=== PATIENT | male | born 1985 | race African-American/Black ===

== ENCOUNTER 2017-02-12 22:43 | Emergency (ER) | payer MEDICAID ==
[~2017-02-12] VITALS: Ht 190.5 cm; Wt 134.0 kg
[2017-02-12] MEDS ORDERED: KETOROLAC 60MG/2ML VIAL IM ONE (23:30)
[2017-02-13 00:03] VITALS: BP 136/80
== END 2017-02-13 00:03 | disposition home or self-care (01) ==
LOC: ER 22:44
DX: M54.5 Low back pain (principal); G89.29 Other chronic pain; F17.200 Nicotine dependence, unspecified, uncomplicated; Z88.0 Allergy status to penicillin; W01.0XXA Fall on same level from slipping, tripping and stumbling without subsequent striking against object, initial encounter; Y93.89 Activity, other specified; Y99.8 Other external cause status; Y92.89 Other specified places as the place of occurrence of the external cause
CPT/HCPCS: 96372; 99283; J1885

== ENCOUNTER 2017-10-24 00:15 | Emergency (ER) | payer MEDICAID, OTHER ==
[~2017-10-24] VITALS: Ht 188 cm; Wt 117.0 kg
[2017-10-24 01:37] VITALS: BP 125/57
== END 2017-10-24 02:50 | disposition left against medical advice (07) ==
LOC: ER 00:15
DX: R05 Cough (principal); F20.9 Schizophrenia, unspecified; F31.9 Bipolar disorder, unspecified; F17.200 Nicotine dependence, unspecified, uncomplicated; Z88.0 Allergy status to penicillin
CPT/HCPCS: 71045; 99283; 99406

== ENCOUNTER 2023-09-25 00:17 | Emergency (ER) | payer MEDICAID, OTHER ==
[~2023-09-25] VITALS: Ht 188 cm; Wt 112.0 kg
[2023-09-25 00:46] VITALS: TEMP 98.1; O2SAT 99
[2023-09-25] MEDS ORDERED: ACETAMINOPHEN 325MG TABLET ONE (04:12)
[2023-09-25 04:30] VITALS: BP 118/74; PULSE 88; RESP 14
[2023-09-25] MEDS: TETANUS, DIPHTHERIA, PERTUSSIS VAC/PF 0.5ML (>10YR OLD) IM ONE (04:30)
[2023-09-25] MEDS: ACETAMINOPHEN 325MG TABLET PO ONE (04:30)
[2023-09-25] MEDS ORDERED: IBUP-2030 MT (05:31)
[2023-09-25] MEDS ORDERED: AZIT250T12 MT (05:31)
[2023-09-25] MEDS ORDERED: CODE10LI2 MT (05:31)
== END 2023-09-25 04:30 | disposition home or self-care (01) ==
LOC: ER 00:38
DX: S00.211A Abrasion of right eyelid and periocular area, initial encounter (principal); Z88.0 Allergy status to penicillin; Z86.59 Personal history of other mental and behavioral disorders; X58.XXXA Exposure to other specified factors, initial encounter; Y93.89 Activity, other specified; Y92.89 Other specified places as the place of occurrence of the external cause; Y99.8 Other external cause status
CPT/HCPCS: 70486; 90471; 90715; 99285

== ENCOUNTER 2023-09-25 04:41 | Emergency (ER) | payer MEDICAID ==
[2023-09-25] MEDS ORDERED: CODE10LI2 MT (05:31)
[2023-09-25] MEDS ORDERED: AZIT250T12 MT (05:31)
[2023-09-25] MEDS ORDERED: IBUP-2030 MT (05:31)
[2023-09-25 06:20] VITALS: BP 142/79; PULSE 74; RESP 16
[2023-09-25] MEDS: IBUPROFEN 800MG TABLET PO STA (06:20)
[2023-09-25] MEDS: AZITHROMYCIN 500 MG TABLET PO STA (06:20)
== END 2023-09-25 06:23 | disposition home or self-care (01) ==
LOC: ER 04:41
DX: J02.9 Acute pharyngitis, unspecified (principal); Z88.0 Allergy status to penicillin; Z86.59 Personal history of other mental and behavioral disorders
CPT/HCPCS: 99283

== ENCOUNTER 2024-05-26 00:33 | Emergency (ER) | payer MEDICAID ==
[~2024-05-26] VITALS: Ht 188 cm; Wt 90.0 kg
[~2024-05-26 00:33] MED LIST: AZIT250T12 MT; CODE10LI2 MT; IBUP-2030 MT
[2024-05-26 00:35] VITALS: O2SAT 98
[2024-05-26 01:17] LABS: BASOPHILS % 0.5 % (0.0-2.0); EOSINOPHILS % 1.3 % (0.0-5.0); HEMATOCRIT. 35.2 % (42.0-52.0); LYMPHOCYTES % 40.5 % (20.0-50.0); MEAN CORPUSCULAR HGB CONC 34.2 g/dL (31.0-37.0); MEAN CORPUSCULAR VOLUME 90.8 fL (80.0-94.0); MEAN PLATELET VOLUME 9.5 fl (7.4-10.4); MONOCYTES % 9.5 % (2.0-8.0); NEUTROPHILS % 48.2 % (40.0-76.0); PLATELET 162 x1000/uL (130-400); RED BLOOD CELL COUNT 3.88 mill/uL (4.7-6.1); RED CELL DISTRIBUTION WIDTH 14.2 % (11.6-14.6); WHITE BLOOD COUNT 3.8 x1000/uL (4.5-11.0)
[2024-05-26 01:36] LABS: CARBON DIOXIDE 29 mEq/L (21-32); CHLORIDE 107 mEq/L (98-107); POTASSIUM 3.5 mEq/L (3.5-5.1); SODIUM 142 mEq/L (136-145)
[2024-05-26 01:37] LABS: CALCIUM 9.1 mg/dL (8.7-10.4)
[2024-05-26 01:41] LABS: CREATININE 1.1 mg/dL (0.6-1.3)
[2024-05-26 01:42] LABS: GLUCOSE 131 mg/dL (70-105); UREA NITROGEN BLOOD 22 mg/dL (9-23)
[2024-05-26 01:43] LABS: ACETAMINOPHEN < 2 ug/mL (10-30); ALANINE AMINOTRANSFERASE 31 IU/L (10-49); ALBUMIN 4.1 g/dL (3.2-4.8); ASPARTATE AMINOTRANSFERASE 48 IU/L (<34)
[2024-05-26 01:44] LABS: BILIRUBIN DIRECT 0.2 mg/dL (<=3.0); BILIRUBIN TOTAL 0.6 mg/dL (0.1-1.0); PROTEIN TOTAL 6.3 g/dL (6.0-8.3)
[2024-05-26 01:52] LABS: ETHANOL BLOOD < 10 mg/dL (<10)
[2024-05-26 09:38] LABS: CLARITY URINE CLEAR (CLEAR); COLOR URINE YELLOW (YELLOW); GLUCOSE URINE NEGATIVE (NEGATIVE); KETONES URINE NEGATIVE (NEGATIVE); LEUKOCYTE ESTERASE URINE NEGATIVE (NEGATIVE); NITRITE URINE NEGATIVE (NEGATIVE); OCCULT BLOOD URINE NEGATIVE (NEGATIVE); PH URINE 5.5 (4.5-8.0); PROTEIN URINE NEGATIVE (NEGATIVE); SPECIFIC GRAVITY URINE 1.016 (1.005-1.030); UROBILINOGEN URINE 0.2 E.U./dL (0.2-1.0)
[2024-05-26 10:54] LABS: *AMPHETAMINES SCREEN URINE PRESUMPTIVE POSITIVE (NEGATIVE); *BARBITURATES SCREEN URINE NEGATIVE (NEGATIVE); *BENZODIAZEPINES SCREEN URINE NEGATIVE (NEGATIVE); *COCAINE SCREEN URINE NEGATIVE (NEGATIVE); METHADONE URINE SCREEN NEGATIVE (NEGATIVE)
[2024-05-26 10:55] LABS: CANNABINOID URINE SCREEN PRESUMPTIVE POSITIVE (NEGATIVE); ECSTASY MDMA SCREEN URINE NEGATIVE (NEGATIVE); OPIATES URINE SCREEN NEGATIVE (NEGATIVE); PHENCYCLIDINE URINE SCREEN PRESUMTIVE POSITIVE (NEGATIVE)
[2024-05-26] MEDS: QUETIAPINE FUMARATE 50MG TABLET PO SCH (20:29)
[2024-05-27 13:02] VITALS: BP 119/75; PULSE 83; RESP 16; TEMP 36.8; O2SAT 99
== END 2024-05-27 14:24 ==
LOC: ER 00:33
DX: R45.851 Suicidal ideations (principal); F19.10 Other psychoactive substance abuse, uncomplicated; F25.0 Schizoaffective disorder, bipolar type; Z59.00 Homelessness unspecified; Z88.0 Allergy status to penicillin; Z20.822 Contact with and (suspected) exposure to COVID-19; Z79.899 Other long term (current) drug therapy
CPT/HCPCS: 80076; 80305; 80048; 81003; 80307; 80329; 80320; 85025; 36415; 99285; 87426; Z7610 ×3; G0480